=== PATIENT | male | born 1995 | race Hispanic/Latino ===

== ENCOUNTER 2017-02-25 13:19 | Emergency (ER) | payer BC, OTHER ==
[2017-02-25 13:30] VITALS: BMI 18.1
[2017-02-25 13:34] VITALS: BP 111/74; PULSE 87; RESP 19; TEMP 98.2; O2SAT 100
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
== END 2017-02-25 14:29 | disposition home or self-care (01) ==
LOC: ED 13:19
DX: M25.531 Pain in right wrist (principal); M79.644 Pain in right finger(s)

== ENCOUNTER 2017-04-25 01:04 | Emergency (ER) | payer BC ==
[2017-04-25 01:05] VITALS: BMI 18.1
[2017-04-25 01:35] VITALS: RESP 16; TEMP 98.3
[2017-04-25 01:42] LABS: BASO # 0.01 K/mm3 (0.0-2.0); BASO % 0.2 % (0.0-3.0); EOS # 0.1 (0.0-0.7); EOS % 2.1 % (1.5-5.0); GRAN # 3.15 (1.4-6.5); GRAN % 59.9 % (50.0-68.0); HEMOGLOBIN 17.4 gm/dL (14.0-18.0); LYMPH # 1.5 (1.2-3.4); LYMPH % 28.7 % (22.0-35.0); MEAN CELL VOLUME 87.9 fL (80.0-105.0); MEAN CORPUSCULAR HEMOGLOBIN 31.9 pg (25.0-35.0); MEAN CORPUSCULAR HGB CONC 36.3 g/dl (31.0-37.0); MEAN PLATELET VOLUME 9.2 fl (7.0-11.0); MONO # 0.5 (0.1-0.6); MONO % 9.1 % (1.0-6.0); PLATELET COUNT 160 10^3/uL (120.0-450.0); RBC 5.45 10^6/uL (3.5-6.1); RED CELL DISTRIBUTION WIDTH 12.6 % (11.5-14.5); WHITE BLOOD COUNT 5.3 10^3/ul (4.5-11.0)
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
[2017-04-25 01:52] LABS: ALB/GLOB RATIO 1.5 (1.1-1.8); ALBUMIN 4.8 g/dL (3.0-4.8); ALT/SGPT 24 U/L (7-56); AST/SGOT 25 U/L (15-59); BLOOD UREA NITROGEN 12 mg/dL (7-21); CALCIUM 9.6 mg/dL (8.4-10.5); GFR AFRICAN-AMERICAN > 60; GFR NON-AFRICAN AMERICAN > 60
[2017-04-25 02:47] VITALS: BP 120/80; PULSE 80; O2SAT 98
--- NOTE | 2017-04-25 10:18 | CT ---
PROCEDURE: CT Chest without contrast HISTORY: chest pain COMPARISON: 06/24/2016 CT of the chest TECHNIQUE: Contiguous axial images were obtained through the chest without intravenous contrast enhancement. Sagittal and coronal reconstructions were performed. Radiation dose (DLP): 198 mGy-cm. This CT exam was performed using one or more of the following dose reduction techniques: Automated exposure control, adjustment of the mA and/or kV according to patient size, and/or use of iterative reconstruction technique. FINDINGS: LUNGS: Clear lungs. Visualized airway clear. MEDIASTINUM: Unremarkable thoracic aorta. No aneurysm. Normal sized heart. Main pulmonary artery unremarkable. No vascular congestion. No lymphadenopathy. PLEURA: No pleural fluid. No pneumothorax. BONES: No fracture. No destructive lesion. UPPER ABDOMEN: Grossly unremarkable. OTHER FINDINGS: None. IMPRESSION: Unremarkable non-contrast enhanced CT of the chest.
--- NOTE | 2017-04-26 09:47 | CARD ---
APPROVED REPORT EKG Measurement Heart [id number] <Conclusion> Normal sinus rhythm with sinus arrhythmia Voltage criteria for left ventricular hypertrophy, could be a normal variant No change
== END 2017-04-25 03:04 | disposition home or self-care (01) ==
LOC: ED 01:04
DX: R07.89 Other chest pain (principal)